=== PATIENT | male | born 1980 | race Caucasian/White ===

== ENCOUNTER 2017-12-06 21:10 | Emergency (ER) | payer OTHER ==
[~2017-12-06] VITALS: Ht 195.6 cm; Wt 97.5 kg
[2017-12-06 21:37] VITALS: BP 142/68
[2017-12-06] MEDS ORDERED: LIDOCAINE /MPF 1% VIAL 5 ML VIAL ONE (22:09)
[2017-12-06] MEDS ORDERED: LIDOCAINE HCL/PF 1% 30 ML SDV ONE (22:10)
[2017-12-06] MEDS ORDERED: TDAP [DIPH/PERTUSSIS/TET] 0.5 ML VIAL IM ONE ×2 (22:21→22:30)
[2017-12-06] MEDS ORDERED: LIDOCAINE HCL/PF 1% 30 ML VIAL TP ONE (22:30)
== END 2017-12-06 23:25 | disposition home or self-care (01) ==
LOC: ER 21:10
DX: S61.217A Laceration without foreign body of left little finger without damage to nail, initial encounter (principal); W26.0XXA Contact with knife, initial encounter; Y93.89 Activity, other specified; Y92.89 Other specified places as the place of occurrence of the external cause; Y99.0 Civilian activity done for income or pay
CPT/HCPCS: 90715; A4606; A6402; J3490; Z7610

== ENCOUNTER 2017-12-09 15:27 | Emergency (ER) | payer OTHER ==
[~2017-12-09] VITALS: Ht 195.6 cm; Wt 99.8 kg
[2017-12-09 15:27] VITALS: BP 154/90
== END 2017-12-09 18:00 | disposition home or self-care (01) ==
LOC: ER 17:02
DX: S61.412D Laceration without foreign body of left hand, subsequent encounter (principal); Z60.2 Problems related to living alone
CPT/HCPCS: A4606; A6402; Z7502; Z7610

== ENCOUNTER 2017-12-14 17:24 | Emergency (ER) | payer OTHER ==
[~2017-12-14] VITALS: Ht 195.6 cm; Wt 102.1 kg
[2017-12-14 17:24] VITALS: BP 140/96
== END 2017-12-14 17:52 | disposition home or self-care (01) ==
LOC: ER 17:28
DX: S61.217D Laceration without foreign body of left little finger without damage to nail, subsequent encounter (principal); Z60.2 Problems related to living alone
CPT/HCPCS: 99281; A4606; Z7610; Z7502